=== PATIENT | female | born 1985 | race Caucasian/White ===

== ENCOUNTER 2019-05-27 19:50 | Emergency (ER) | payer OTHER ==
[2019-05-27] MEDS ORDERED: Ibuprofen TAB* 600 MG PO ONE (20:48)
[2019-05-27] MEDS ORDERED: Ibuprofen TAB* 600 MG ONE (20:57)
--- NOTE | 2019-05-27 22:08 | ED ---
Lower Extremity - HPI Summary HPI Summary: Patient complains of left foot pain, after losing her balance and coming down on it wrong today. Denies any other pain injury or symptoms. - History of Current Complaint Chief Complaint: EDExtremityLower Stated Complaint: INJURED FOOT PER PT Time Seen by Provider: 05/27/19 20:16 Hx Obtained From: Patient Hx Last Menstrual Period: 10/15/2018 Mechanism Of Injury: Blunt Trauma Onset of Pain: Immediate Onset/Duration: Hours Severity Initially: Moderate Severity Currently: None Pain Intensity: 0 Pain Scale Used: 0-10 Numeric Timing: Intermittent Location: Is Discrete @ Character Of Pain: Aching, Throbbing Associated Signs And Symptoms: Positive: Swelling Aggravating Factor(s): Standing, Ambulation, Weight Bearing Alleviating Factor(s): Rest, Elevation Able to Bear Weight: No - Allergies/Home Medications Allergies/Adverse Reactions: Allergies Allergy/AdvReac Type Severity Reaction Status Date / Time No Known Allergies Allergy Verified 11/03/18 12:44 PMH/Surg Hx/FS Hx/Imm Hx Endocrine/Hematology History: Denies: Hx Anticoagulant Therapy Cardiovascular History: Denies: Hx Pacemaker/ICD History: Denies: Hx Dialysis Sensory History: Denies: Hx Legally Blind Opthamlomology History: Denies: Hx Eye Prosthesis EENT History: Denies: Hx Deafness Neurological History: Denies: Hx Dementia Infectious Disease History: No Infectious Disease History: Denies: Traveled Outside the [place] in Last 30 Days - Family History Known Family History: Positive: Hypertension, Diabetes Family History: Stroke - Social History Alcohol Use: Weekly Substance Use Type: Reports: None Smoking Status (MU): Never Smoked Tobacco Review of Systems Constitutional: Negative Eyes: Negative ENT: Negative Cardiovascular: Negative Respiratory: Negative Gastrointestinal: Negative Genitourinary: Negative Musculoskeletal: Other Skin: Negative Neurological: Negative Psychological: Normal All Other Systems Reviewed And Are Negative: Yes Physical Exam - Summary Physical Exam Summary: Swelling to left foot no ecchymosis, deformity, erythema noted. Most tender to palpation along medial and plantar aspect of left foot. PMS intact distally. Normal range of motion of left ankle with mild pain. Triage Information Reviewed: Yes Vital Signs On Initial Exam: Initial Vitals Temp Pulse Resp BP Pulse Ox 98 F 111 20 137/88 96 05/27/19 19:55 05/27/19 19:55 05/27/19 19:55 05/27/19 19:55 05/27/19 19:55 Vital Signs Reviewed: Yes Appearance: Positive: Well-Appearing Skin: Positive: Warm Head/Face: Positive: Normal Head/Face Inspection Eyes: Positive: Normal Dental: Negative: Dental Fracture @, Bleeding Neck: Positive: Supple Respiratory/Lung Sounds: Positive: Clear to Auscultation Cardiovascular: Positive: Normal Abdomen Description: Positive: Nontender Musculoskeletal: Positive: Normal Neurological: Positive: Normal Psychiatric: Positive: Normal AVPU Assessment: Alert - [place] Coma Scale Best Eye Response: 4 - Spontaneous Best Motor Response: 6 - Obeys Commands Best Verbal Response: 5 - Oriented Coma Scale Total: 15 Diagnostics - Vital Signs Vital Signs Temp Pulse Resp BP Pulse Ox 05/27/19 19:55 98 F 111 20 137/88 96 - Laboratory Lab Statement: Any lab studies that have been ordered have been reviewed, and results considered in the medical decision making process. Lower Extremity Course/Dx - Course Course Of Treatment: Patient complains of left foot pain, after losing her balance and coming down on it wrong today. Denies any other pain injury or symptoms. Vital signs within normal limits. Possible fracture of the midfoot on x-ray. Patient placed in surgical boot. Patient had crutches with her. Patient advised to be nonweightbearing on left foot until notified of radiology results tomorrow. Follow-up with Dr. Philippe for confirmed fracture or if symptoms persist more than 1 week. Ice and ibuprofen in the meantime. - Diagnoses Provider Diagnoses: Strain of foot, left Discharge - Sign-Out/Discharge Documenting (check all that apply): Patient Departure Patient Received Moderate/Deep Sedation with Procedure: No - Discharge Plan Condition: Stable Disposition: HOME Prescriptions: Oxycodone HCl 5 mg PO TID 2 Days #6 tablet MDD 4 tabs Referrals: [facility] - Alex STEELE [Primary Care Provider] - Marcia Philippe MD [Medical Doctor] - Additional Instructions: You will be called with radiology results tomorrow if their results are different. No weightbearing on left foot until confirmed there is no fracture. Ice 10 minutes at a time. Ibuprofen 600 mg every 6 hours for pain. Follow- up with orthopedics Dr. Philippe for further evaluation. - Billing Disposition and Condition Condition: STABLE Disposition: Home
[2019-05-27 22:22] VITALS: BP 131/78
--- NOTE | 2019-05-28 11:39 | ED ---
Progress - Progress Note Progress Note: The patient called in looking for x-ray results. I told her that the radiologist was concerned for possible cuneiform bone fracture. I advised her to be nonweightbearing, and to arrange close follow-up with orthopedics. She is agreeable. She has crutches at home. Course/Dx - Course Course Of Treatment: Patient complains of left foot pain, after losing her balance and coming down on it wrong today. Denies any other pain injury or symptoms. Vital signs within normal limits. Possible fracture of the midfoot on x-ray. Patient placed in surgical boot. Patient had crutches with her. Patient advised to be nonweightbearing on left foot until notified of radiology results tomorrow. Follow-up with Dr. Philippe for confirmed fracture or if symptoms persist more than 1 week. Ice and ibuprofen in the meantime. - Diagnoses Provider Diagnoses: Cuneiform fracture, foot Discharge - Sign-Out/Discharge Documenting (check all that apply): Post-Discharge Follow Up Patient Received Moderate/Deep Sedation with Procedure: No - Discharge Plan Condition: Stable Disposition: HOME Prescriptions: Oxycodone HCl 5 mg PO TID 2 Days #6 tablet MDD 4 tabs Referrals: [facility] - Alex STEELE [Primary Care Provider] - Marcia Philippe MD [Medical Doctor] - Additional Instructions: You will be called with radiology results tomorrow if their results are different. No weightbearing on left foot until confirmed there is no fracture. Ice 10 minutes at a time. Ibuprofen 600 mg every 6 hours for pain. Follow- up with orthopedics Dr. Philippe for further evaluation. - Billing Disposition and Condition Condition: STABLE Disposition: Home
== END 2019-05-27 22:10 | disposition home or self-care (01) ==
LOC: ED 19:50
DX: S92.245A Nondisplaced fracture of medial cuneiform of left foot, initial encounter for closed fracture (principal); X50.0XXA Overexertion from strenuous movement or load, initial encounter; Y92.9 Unspecified place or not applicable
CPT/HCPCS: 99282; A9270-GY